=== PATIENT | male | born 1990 | race Caucasian/White ===

== ENCOUNTER 2017-10-29 15:06 | Emergency (ER) | payer BC ==
[~2017-10-29] VITALS: Ht 185.4 cm; Wt 79.4 kg
[2017-10-29] MEDS ORDERED: AZITHROMYCIN 250 MG TAB PO ONE (16:00)
[2017-10-29] MEDS ORDERED: CEFTRIAXONE SOD 500 MG VIAL IM ONE (16:00)
[2017-10-29 16:15] VITALS: BP 139/84
== END 2017-10-29 16:50 | disposition home or self-care (01) ==
LOC: FSED 15:06
DX: R30.0 Dysuria (principal); Z20.2 Contact with and (suspected) exposure to infections with a predominantly sexual mode of transmission
CPT/HCPCS: 81003; 99283; J0696